=== PATIENT | female | born 1965 | race Two or more races ===

== ENCOUNTER 2019-12-05 16:59 | Outpatient (AMBR) | payer MEDICAID, SELFPAY ==
--- NOTE | 2019-12-05 17:13 | PT.OIERPT ---
PT OP Initial Eval Patient Information Visit Reasons: right shoulder post op Medical Diagnosis: R lateral malleolus FX Treatment Dx #1: R ankle pain Start of Care: 12/05/19 Date of Onset: 10/05/19 Initial Assessment Subjective Pt is 54 yr old female s/p R lateral malleolus non-displaced FX about 8 weeks ago. She presents to therapy ambulating with unsymmetrical pattern without assistive device. She reports continued swelling in the ankle and pain level is variable 0-4/10 that increases with prolonged walking and moving the foot inward. PMH: none reported Imaging: R ankle X-ray in EMR Pt goal: to get rid of the ankle pain and to be able to walk without a limp. Objective R ankle ArOM: DF: 4 deg PF: 45 deg with anterior TCJ pain Eversion: 10 deg Inv: 15 deg limited by pain Strength: DF: 3+/5 PF: 3+/5 Eversion/Inv 3+/5 Observation: Edema about lateral malleolus TTP: moderate over ATF ligament and lateral malleolus Assessment Pt presentation consistent with s/p lateral malleolus FX. Pt has ROM limitations into DF and inversion and decreased ankle strength in all planes of motion. Pt has decreased WB tolerance due to lateral ankle pain. Pt requires skilled therapy in order to decrease pain and improve strength and has good rehab potential. [employer] Goals 1. Ind with HEP 2. Improved ankle DF to 10 deg and PF to 50 deg 3. Improved ankle strength to 4/5 in all planes 4. Pt will heel raise x10 with <=2/10 pain 5. Pt will ambulate with symmetrical gait pattern community distances and no assistive device. Treatment Plan 1. Manual therapy 2. Therex 3. Modalities as indicated, moist heat pack, ice, electrical stimulation, Frequency and Duration 2x a week for 6 weeks Certification Dates: 12/05/19 to 03/05/20 Office Procedures PT Procedures PT Date of Service: 12/05/19 OP PT Eval Mod Complex 30 minutes: Yes
--- NOTE | 2019-12-10 18:53 | PT.ODAYNRPT ---
PT Outpatient Daily Note Date of Service: 12/10/19 OP Daily Note Visit Reasons: right ankle Outpatient Physical Therapy Treatment Date: 12/10/19 Subjective: Same as time of evaluation Objective: See f/S for therex Assessment: Good therex tolerance with low tissue irritability today. Plan: Continue per POC Length of Time (minutes) of Treatment: 30 Minutes Office Procedures PT Procedures PT Date of Service: 12/05/19 OP PT Eval Mod Complex 30 minutes: Yes PT Procedures PT Date of Service: 12/10/19 Therapeutic Exercise 30 minutes: Yes
== END 2019-12-11 23:59 | disposition home or self-care (01) ==
PROVIDERS: PCP Nurse Practitioner Family; Referring Provider Nurse Practitioner Family; Visit Provider Orthopaedic Surgery
DX: Z98.890 Other specified postprocedural states (principal); M25.571 Pain in right ankle and joints of right foot
CPT/HCPCS: 97110; 97162

== ENCOUNTER → 2024-07-19 | Outpatient (CLI) | payer BC, SELFPAY ==
[2024-07-19 13:23] LABS: Urea Breath Test Positive (Negative)
== END | disposition home or self-care (01) ==
LOC: COPL 12:12
PROVIDERS: PCP Nurse Practitioner Family; Referring Provider Nurse Practitioner Family; Visit Provider Nurse Practitioner Family
DX: R14.1 Gas pain (principal)
CPT/HCPCS: 83013; 83014

== ENCOUNTER → 2024-10-02 | Outpatient (CLI) | payer BC, SELFPAY ==
[2024-10-02 12:26] LABS: Collection Type, Urine Clean Catch
[2024-10-02 12:52] LABS: Basophils # (Auto) 0.0 Thou/mm3 (0.0-0.2); Basophils % (Auto) 1 % (0-2.5); Eosinophils # (Auto) 0.1 Thou/mm3 (0.0-0.5); Eosinophils % (Auto) 2 % (0-10); Hematocrit 43.1 % (36.0-46.0); Hemoglobin 14.6 g/dL (12.0-16.0); Immature Granulocytes Auto 0.01 Thou/mm3 (0.00-0.00); Lymphocytes # (Auto) 2.1 Thou/mm3 (1.0-4.8); Lymphocytes % (Auto) 36 % (10-50); Mean Corpuscular HGB Conc 33.9 g/dl (31.0-37.0); Mean Corpuscular Hemoglobin 31.3 pg (25.0-35.0); Mean Corpuscular Volume 93 fL (80-100); Monocytes # (Auto) 0.7 Thou/mm3 (0.0-0.8); Monocytes % (Auto) 12 % (0-12); Neutrophils # (Auto) 2.9 Thou/mm3 (1.8-7.7); Neutrophils % (Auto) 50 % (37-80); Nucleated Red Blood Cell # 0.00 Thou/mm3 (0.00-0.00); Nucleated Red Blood Cell % 0 /100 WBC (0); Platelet Count 236 Thou/mm3 (140-440); RDW Standard Deviation 43.0 fL (36.4-46.3); Red Blood Count 4.66 Miln/mm3 (4.00-5.20); White Blood Count 5.8 Thou/mm3 (3.6-11.0)
[2024-10-02 12:53] LABS: Bilirubin,Urine Negative (Negative); Blood,Urine 1+ (Negative); Clarity,Urine Clear (Clear/Hazy); Color,Urine Lt-Yellow (Lt Yel-Yel); Culture Indicated,Urine Not Indicated; Glucose, Urine Negative (Negative); Ketones,Urine Negative (Negative); Leukocyte Esterase,Urine Positive (Negative); Nitrite,Urine Negative (Negative); PH,Urine 6.0 (5.0-7.0); Protein,Urine Negative (Neg - Trace); RBC,Urine 4 /hpf (0-3); Specific Gravity,Urine 1.024 (1.001-1.035); Squamous Epithelial Cell,Urine 1 /hpf (0-5); Urobilinogen,Urine Negative mg/dL (0.0-1.0); WBC,Urine 5 /hpf (0-5)
[2024-10-02 13:06] LABS: Glucose Estimated Average 105 mg/dL (80-131); Hemoglobin A1C 5.3 % Hgb (4.8-6.0)
[2024-10-02 13:09] LABS: Vitamin D 25 Hydroxy Total 37.6 ng/mL (7.3-40.2)
[2024-10-02 13:10] LABS: Alanine Aminotransferase 32 U/L (10-49); Albumin, Serum 4.4 gm/dL (3.5-5.0); Albumin/Globulin Ratio 1.4 (1.2-2.2); Alkaline Phosphatase 77 U/L (46-116); Anion Gap 11 (7-16); Aspartate Amino Transferase 34 U/L (0-34); BUN/Creatinine Ratio 12 Ratio (12-20); Bilirubin,Total 0.7 mg/dL (0.3-1.2); Blood Urea Nitrogen 11 mg/dL (9-23); Calcium 9.0 mg/dL (8.3-10.6); Calcium (Corrected) 9.0 mg/dL (8.5-10.1); Carbon Dioxide 26.8 mMol/L (20.0-31.0); Cardiac Risk Estimate 3.3 RATIO (3.7-5.6); Chloride 107 mMol/L (98-107); Cholesterol 205 mg/dL (132-200); Creatinine (Component) 0.9 mg/dL (0.6-1.3); Globulin 3.1 gm/dL (2.3-3.5); Glucose 92 mg/dL (74-106); HDL Cholesterol 62 mg/dL (40-60); LDL Cholesterol,Calculated 128 mg/dL (0-130); Osmolality,Calculated 288 (275-295); Potassium 3.8 mMol/L (3.4-5.1); Sodium 145 mMol/L (136-145); Thyroid Stimulating Hormone 2.92 uIU/mL (0.55-4.78); Total Protein 7.5 gm/dL (5.7-8.2); Triglycerides 77 mg/dL (30-150); eGFR > 60 See Note
[2024-10-02 13:13] LABS: Urea Breath Test Negative (Negative)
== END | disposition home or self-care (01) ==
LOC: COPL 11:38
PROVIDERS: PCP Family Medicine; Referring Provider Registered Nurse; Visit Provider Registered Nurse
DX: Z00.00 Encounter for general adult medical examination without abnormal findings (principal); B96.81 Helicobacter pylori [H. pylori] as the cause of diseases classified elsewhere
CPT/HCPCS: 36415; 80053; 80061; 81001; 82306; 83013; 83014; 83036; 84443; 85025